=== PATIENT | male | born 1930 | race Caucasian/White ===

== ENCOUNTER 2017-03-10 07:48 | Outpatient (CLI) | payer MEDICARE ==
[~2017-03-10] VITALS: Ht 177.8 cm; Wt 72.7 kg
--- NOTE | ~2017-03-10 | HEMODYNAMI ---
PATIENT:DIGNA RAVI MEDICAL RECORD: [id number] : 30 LOCATION:[facility] ADMISSION DATE: 03/10/17 Generatedon:03/10/201711:04 Patient name: DIGNA RAVI Patient #: [id number] SSN: : 1930 Date of study: 03/10/2017 Page: Of Hemodynamic Procedure Report Patient Data Patient Demographics Procedure consent was obtained First Name: DIGNA Gender: Male Last Name: BREONNA : 1930 Middle Initial: D Age: 86 year(s) Patient #: [id number] Race: Unknown Additional ID: [id number] Contact details [address]: [address] [place] [address] State: [place] City: [place] Zip code: [address] Past Medical History Allergies: No known allergies Admission Admission Data Admission Date: 03/10/2017 Admission Time: 7:48 Admit Source: Other Height (in.): 60 BSA: 1.68 (m2) Height (cm.): 152.4 BMI: 30.66 (kg/m2) Weight (lbs.): 157 Weight (kg.): 71.21 Lab Results Lab Result Date: 03/10/2017 Lab Result Time: 0:00 Biochemistry Name Units Result Min Max BUN mg/dl 32 --(----)-* 7 18 Creatinine mg/dl 1.8 --(----)-* 0.6 1.3 CBC Name Units Result Min Max Hemoglobin g/dl 10.6 *-(----)-- 13.5 17.5 Procedure Procedure Types Cath Procedure Diagnostic Procedure C [facility] w/Coronaries PCI Procedure Coronary Stent Coronary Stent Initial Miscellaneous Procedures Moderate Sedation up to 15 minutes Procedure Description Procedure Date Procedure Date: 03/10/2017 Procedure Start Time: 10:49 Procedure End Time: 11:03 Procedure Staff Name Function Parmjit Burr MD Performing Physician Roro Taylor RT Monitor Karrie Parker RT Scrub Hunter Francois RN Nurse Preethi Sanders RN Nurse Procedure Data Cath Procedure Fluoroscopy Diagnostic fluoroscopy Total fluoroscopy Time: 1.9 time: 1.9 min min Diagnostic fluoroscopy Total fluoroscopy dose: 450 dose: 450 mGy mGy Contrast Material Contrast Material Type Amount (ml) Isovue 300 71 Entry Location Entry Primary Successful Side Size Upsize Upsize Entry Closure Lorenz ccessful Closure Location (Fr) 1 (Fr) 2 (Fr) Remarks Device Remarks Radial Right 6 Fr Mechanical TR band artery Short Compression Estimated blood loss: 10 ml Diagnostic catheters Device Type Used For End Catheter Placement DIAGNOSTIC Napavine 110cm 5 Procedure Fr catheter ([id number]) Procedure Complications No complications Procedure Medications Medication Administration Route Dosage 0.9% NaCl I.V. 100 ml/hr Oxygen NC 2 l/min Lidocaine 2% added to field 20 Heparin Flush Bag added to field 2 bags (1000units/500ml NS) Radial Cocktail added to field 1 syringe (Verapomil 2mg/Nitro 400mcg/Heparin 1500units) Fentanyl I.V. 50 mcg Versed I.V. 1 mg Versed I.V. 0.5 mg Fentanyl I.V. 25 mcg Heparin Bolus I.V. 4000 units Hemodynamics Rest BSA: 1.68 (m2) O2 Consumption: Estimated: 228.48 (ml/min) O2 Consumption indexed : Estimated:136 (ml/min/m) Pre Cath Intra NCS Post Cath Vital Signs Time Heart Resp SPO2 NIBP (mmHg) Rhythm Pain Sedation Rate (ipm) (%) Status Level (bpm) 10:37:16 56 15 100 150/76(123) NSR 0 (11) 10(A) , No pain 10:41:34 57 16 100 150/74(120) NSR 0 (11) 9(A) , No pain 10:45:59 54 14 98 121/56(102) NSR 0 (11) 9(A) , No pain 10:50:10 55 14 99 114/59(96) NSR 0 (11) 9(A) , No pain 10:54:22 55 16 100 84/48(68) NSR 0 (11) 10(A) , No pain 10:58:24 61 16 97 96/53(77) NSR 0 (11) 10(A) , No pain 11:02:28 56 8 100 107/49(86) NSR 0 (11) 10(A) , No pain Medications Time Medication Route Dose Verified Delivered Reason Not es Effectiveness by by 10:36:37 0.9% NaCl I.V. 100ml/hr Parmjit Oro used for Leno Sanders RN procedure 10:36:50 Oxygen NC 2 l/min Parmjit Oro used for Leno Sanders RN procedure 10:37:02 Lidocaine 2% added 20ml Parmjit Parnell for local to vial Leno Burr MD anesthetic field 10:37:11 Heparin Flush added 2 bags Parmjit Parnell used for Bag to Leno Burr MD procedure (1000units/500ml field NS) 10:39:24 Radial Cocktail added 1 Parmjit Parnell for (Verapomil to syringe Leno Burr MD vasodilation 2mg/Nitro field 400mcg/Heparin 1500units) 10:39:40 Fentanyl I.V. 50 mcg Parmjit Oro for sedation Leno Sanders RN 10:39:49 Versed I.V. 1 mg Parmjit Oro for hypokalemia Leno Sanders RN 10:47:26 Versed I.V. 0.5 mg Parmjit Oro for hypokalemia Leno Sanders RN 10:47:36 Fentanyl I.V. 25 mcg Parmjit Oro for sedation Leno Sanders RN 10:55:10 Heparin Bolus I.V. 4000 Parmjit Oro for units Leno Sanders RN anticoagulation Procedure Log Time Note 10:22:10 Patient Height : 60 inches 10:22:16 Patient Weight : 157 lbs 10:22:16 Admit Source: Other 10:22:59 Diagnostic Cath status Elective 10:23:01 Hunter Francois RN sent for patient. Start room use. 10:23:02 Time tracking: Regular hours 10:23:08 Plan of Care:Hemodynamics will remain stable., Cardiac rhythm will remain stable., Comfort level will be maintained., Respiratory function will remain adequate., Patient/ family verbilizes understanding of procedure., Procedure tolerated without complication., Recovers from procedure without complications.. 10:23:14 Patient received from Pre/Post Procedure Room to CCL 2 Alert and oriented. Tansferred to table in Supine position. 10:26:14 Warm blankets applied, and mary beth hugger turned on for patient comfort. 10:26:14 Correct patient and procedure confirmed by team. 10:26:16 Signed procedure consent form obtained from patient. 10:26:29 H&P Date Dictated: 03/06/2017 Within 30 days and on chart., H&P Addendum completed by physician on day of procedure. (MUST COMPLETE FOR ALL OUTPATIENTS). 10:26:31 Family in waiting room. 10:26:34 Patient NPO since Midnight. 10::42 Patient allergic to No known allergies 10::46 Is the patient allergic to Iodine/contrast media? No. 10::48 Is patient on blood thinner?Yes 10::52 ACC The patient was administered the following blood thiners within the last 24 hours: ACCPlavix 10::55 Patient diabetic? Yes. 10::56 If diabetic: On Metformin? No 10:27:09 Snore? No 10:27:11 Sleep apnea? No 10:27:15 Airway obstruction? No ? 10:27:21 Dentures? Yes in tight 10:27:43 Patient pain scale 0/10 ?. 10:27:55 IV patent on arrival in left forearm with 0.9% NaCl at [facility]. 10:36:04 Vital chart was started 10:36:37 0.9% NaCl 100ml/hr I.V. was administered by Preethi Sanders RN; used for procedure; 10:36:50 Oxygen 2 l/min NC was administered by Preethi Sanders RN; used for procedure; 10:37:02 Lidocaine 2% 20ml vial added to field was administered by Parmjit Burr MD; for local anesthetic; 10:37:11 Heparin Flush Bag (1000units/500ml NS) 2 bags added to field was administered by Parmjit Burr MD; used for procedure; 10:38:36 Lab results completed and on chart. 10:38:39 Right Radial & Right Groin area was prepped with chlora-prep and draped in sterile fashion 10:38:40 Alarms reviewed by R. N. 10:38:40 Sharps counted by scrub and verified by R.N. 10:38:42 Physician paged 10:38:43 Physician arrived 10:38:47 --------ALL STOP TIME OUT------ 10:38:48 Final Timeout: patient, procedure, and site verified with staff and physician. All members of the team are in agreement. 10:38:50 Right Radial & Right Groin site verified by team. 10:38:55 Sedation plan: IV Moderate Sedation Medication:Versed, Fentanyl 10:39:24 Radial Cocktail (Verapomil 2mg/Nitro 400mcg/Heparin 1500units) 1 syringe added to field was administered by Parmjit Burr MD; for vasodilation; 10:39:33 ACIST Syringe (71002) opened to sterile field. 10:39:33 Bag Decanter (2002S) opened to sterile field. 10:39:33 Medline Cath Pack ([id number]) opened to sterile field. 10:39:34 Terumo 5Fr [place] Sheath opened to sterile field. 10:39:34 St Bubba 260cm J .035 wire opened to sterile field. 10:39:35 ACIST Hand Control (64650) opened to sterile field. 10:39:36 ACIST Manifold (40301) opened to sterile field. 10:39:36 DIAGNOSTIC Multipack 5Fr catheter set (YY7424) opened to sterile field. 10:39:39 Tegaderm 4 x 4 (1626W) opened to sterile field. 10:39:40 Fentanyl 50 mcg I.V. was administered by Preethi Sanders RN; for sedation; 10:39:49 Versed 1 mg I.V. was administered by Preethi Sanders RN; for hypokalemia; 10:43:55 Lab Result : BUN 32 mg/dl 10:43:55 Lab Result : Hemoglobin 10.6 g/dl 10:43:55 Lab Result : Creatinine 1.8 mg/dl 10:47:26 Versed 0.5 mg I.V. was administered by Preethi Sanders RN; for hypokalemia; 10:47:36 Fentanyl 25 mcg I.V. was administered by Preethi Sanders RN; for sedation; 10:49:44 Procedure started. 10:49:44 Full Disclosure recording started 10:49:48 Local anesthetic to right radial artery with Lidocaine 2% by Parmjit Burr MD.INITIAL ACCESS ONLY 10:50:15 A 6 Fr Short sheath was inserted into the Right Radial artery 10:52:05 Use device set Radial Dx 10:52:14 ACIST Syringe (14320) opened to sterile field. 10:52:14 Medline Cath Pack ([id number]) opened to sterile field. 10:52:16 Bag Decanter (2001S) opened to sterile field. 10:52:16 Terumo 6Fr Slender Glidesheath opened to sterile field. 10:52:17 St Bubba 260cm J .035 wire opened to sterile field. 10:52:18 ACIST Hand Control (74590) opened to sterile field. 10:52:19 ACIST Manifold (29969) opened to sterile field. 10:52:21 Tegaderm 4 x 4 (1626W) opened to sterile field. 10:52:23 MBrace Wrist Support ([id number]) opened to sterile field. 10:52:47 A DIAGNOSTIC Napavine 110cm 5 Fr catheter (210991) was advanced over the wire and used for Procedure. 10:53:02 LV angiography performed. 10:53:08 EF : 60 % 10:53:13 LCA angiography performed. 10:53:18 RCA angiography performed. 10:53:23 Catheter removed. 10:53:24 Proceeding to intervention. 10:54:34 GUIDE 6FR XBLAD 3.5 catheter ([id number]) opened to sterile field. 10:54:36 INFLATOR Merit BasixCompak Inflation Kit (SM3087) opened to sterile field. 10:54:36 Perry Whisper 190cm wire opened to sterile field. 10:55:10 Heparin Bolus 4000 units I.V. was administered by Preethi Sanders RN; for anticoagulation; 10:55:11 6 Fr XBLAD 3.5 guide catheter was inserted over the wire 10:55:22 Whisper wire advanced. 10:56:10 Wire removed. 10:56:18 Perry Whisper J 300cm 0.014 guide wire opened to sterile field. 10:56:54 whisper 300 wire advanced. 10:56:56 Wire advanced across lesion. 10:57:26 Inflation Number: 1 A HAVEN OTW 3.5 x 18 stent ([id number]) was prepped and advanced across the Mid LAD. The stent was deployed at 15 PB for 0:10 (min:sec). 10:58:31 TR BAND Standard ([id number]) opened to sterile field. 10:58:45 Guide catheter removed. 10:59:04 Sheath removed intact; hemostasis achieved with Mechanical Compression to the Right Radial artery. 10:59:06 Procedure ended.(Physican Out) 10:59:18 Fluoroscopy time 01.90 minutes. 10:59:23 Fluoroscopy dose: 450 mGy 10:59:23 Flurop Dose total: 450 10:59:30 Contrast amount:Isovue 300 71ml. 10:59:32 Sharps counted by scrub and verified by R.N. 10:59:35 TR band inflated with 10cc of air. 10:59:37 Insertion/operative site no bleeding no hematoma. 10:59:38 Post Procedure Pulses reassessed and unchanged 10:59:41 Post-procedure physical assessment completed. ASA score P 2 - A patient with mild systemic disease as per Parmjit Burr MD. 10:59:46 Post procedure rhythm: unchanged. 10:59:49 Estimated blood loss: 10 ml 10:59:51 Post procedure instruction explained to patient.Patient verbalizes understanding. 11:00:05 Procedure type changed to Cath procedure, Diagnostic procedure, LHC, LHC w/Coronaries, PCI procedure, Coronary Stent, Coronary Stent Initial, Miscellaneous Procedures, Moderate Sedation up to 15 minutes 11:00:06 Procedure and supply charges have been captured, reviewed, submitted and are correct. 11:02:48 Procedure Complication : No complications 11:02:51 Vital chart was stopped 11:02:52 See physician's report for complete and final results. 11:02:54 Report given to Pre/Post Procedure Room. 11:02:57 Patient transfered to Pre/Post Procedure Room with Stretcher. 11:03:00 Procedure ended. 11:03:00 Full Disclosure recording stopped 11:03:03 End room use (Document Last) Intervention Summary Intervention Notes Time ActionType Lesion and Equipment Action# Pressure Duration Attributes Used 10:57:26 Place stent Mid LAD HAVEN OTW 3.5 1 15 00:10 x 18 stent ([id number]) Device Usage Item Name Manufacture Quantity Catalog Hospital Part Current Mini mal Lot# / Number Charge Number Stock Stock Serial# Code ACIST Syringe Acist 2 97924 885301 141424 085597 20 (98946) Medical Systems Inc Bag Decanter Microtek 2 709196 42731 519385 5 () Medical Inc. Medline Cath Cardinal 2 [id number] 361044 32999 422627 5 Agari ([id number]) Terumo 5Fr Terumo 1 [id number] 755982 563476 081426 [address] Bubba 2 811824 756428 038788 619300 30 J .035 wire ACIST Hand Acist 2 04276 198642 886139 956147 5 Control Medical (75307) Systems Inc ACIST Acist 2 47531 685788 213544 417810 5 Manifold Medical (41217) Systems Inc DIAGNOSTIC Cardinal 1 [id number] 221582 11983 568909 30 Multipack 5Fr Health catheter set ([id number]) Tegaderm 4 x 3M 2 1626W 345983 638477 452234 5 4 (1626W) DIAGNOSTIC Terumo 1 40-5013 801837 651511 316476 5 Napavine 110cm 5 Fr catheter (571227) Terumo 6Fr Terumo 1 [id number] 724231 719010 101544 40 Slender Glidesheath MBrace Wrist Advanced 1 140-0250-00 876485 96839 041696 5 Support Vascular ([id number]) Dynamics GUIDE 6FR Cardinal 1 [id number] 361173 004268 585211 10 XBLAD 3.5 Health catheter (04202360) INFLATOR [facility] 1 DL0507 950789 848290 990761 15 [facility] BasixCompak Inflation Kit (VQ2353) Perry Perry 1 [id number] 053916 449954 790993 5 Whisper 190cm Vascular wire Perry Perry 1 [id number] 641394 149434 530285 5 Whisper J Vascular 300cm 0.014 guide wire HAVEN OTW 3.5 Medtronic 1 [id number] 405547 2661054 532836 5 [id number] x 18 stent ([id number]) TR BAND Terumo 1 [id number] 847229 595625 225822 40 Standard ([id number]) Signature Audit [place] Stage Time Signature Unsigned Intra-Procedure 03/10/2017 Roro Taylor 11:04:35 AM RT(R) Signatures Monitor : Roro Taylor Signature : RT Date : Time : [place] [address] [place] [address]
[~2017-03-10 07:48] MED LIST: ALPHAGAN 0.2%5 ML EACH EYE; BAYER CHEWABLE81 MG PO; CENTRUM COMPLE1 EACH PO; COREG12.5 MG PO; HYDROCHLOROTH12.5 M1 PO; JANUVIA50 MG PO; LYRICA75 MG PO; PLAVIX75 MG PO; PRINIVIL20 MG PO; TRAVATAN Z2.5 ML EACH EYE; ZETIA10 MG PO
[2017-03-10] MEDS ORDERED: LIPITOR20 MG PO (08:50)
[2017-03-10] MEDS ORDERED: AMBIEN10 MG PO (08:52)
[2017-03-10 09:01] VITALS: BP 124/56; Ht 177.8 cm; Wt 72.7 kg
[2017-03-10 09:09] LABS: HEMATOCRIT 30.9 % (42.0-54.0); HEMOGLOBIN 10.6 g/dL (13.5-17.5); LYMPHOCYTES 23.7 % (15-50); MCH 29.4 pg (26.0-34.0); MCHC 34.3 g/dL (31.0-37.0); MCV 85.6 fL (80.0-100.0); MEAN PLATELET VOLUME 10.8 fL (7.4-10.4); NEUTROPHILS 62.2 % (40-80); PLATELET COUNT 151 10x3/uL (130-400); RBC 3.61 10x6/uL (4.20-6.10); RDW 13.3 % (11.5-14.5); WBC 6.9 10x3/uL (4.8-10.8)
[2017-03-10 09:20] LABS: ANION GAP 12.4 mmol/L (8-16); CARBON DIOXIDE 25.6 mmol/L (21.0-32.0); CREATININE - SERUM 1.8 mg/dL (0.6-1.3)
--- NOTE | 2017-03-21 12:14 | OP ---
PATIENT NAME: DIGNA RAVI MEDICAL RECORD: [id number] :30 LOCATION:[facility] ADMISSION DATE: SURGEON: BRANDIE URIOSTEGUI MD DATE OF OPERATION: 03/10/2017 PROCEDURES: 1. PTCA and stent of LAD. 2. Left heart catheterization. 3. Selective coronary angiography. 4. Left ventriculogram. INDICATION: Angina and coronary artery disease. PROCEDURE IN DETAIL: After informed consent was obtained and after a detailed explanation of the risks, benefits as well as alternative therapies, the patient elected to proceed with angiogram and angioplasty. The right femoral area was prepped and draped in normal sterile fashion. The right femoral artery was cannulated via modified Seldinger technique with placement of 6-Lao sheath. All catheters exchanged through this sheath. FINDINGS: Left ventriculogram was performed in standard 30-degree CORTES view, reveals good cardiac wall motion throughout all segments. Overall ejection fraction estimated at 55%-60%. SELECTIVE CORONARY ANGIOGRAPHY: 1. Left main showed no significant angiographic disease. 2. Left anterior descending has previously placed stent. Proximally, there is 75-80% in-stent restenosis. 3. Left circumflex has moderate irregularities, but no discrete flow-limiting stenosis. 4. Right coronary has 70%-80% stenosis proximally, otherwise only [id number] irregularities. PTCA AND STENT OF THE LAD: The stent used is a 3.5 x 18 mm [place]. Result was 0% residual stenosis. OVERALL IMPRESSION: Successful PTCA and stent of the LAD going from 75-80% initial stenosis to 0% residual stenosis. Plan for PTCA and stent of the RCA in the near future. TRANSINT:[id number] Voice Confirmation ID: [id number] DOCUMENT ID: [id number] BRANDIE URIOSTEGUI MD at 1214 CC: [id number] DICTATION DATE: 03/10/17 1105 RECOOPERER: 03/10/17 1219 [facility] CLI 03/10/[address] [address]
== END 2017-03-10 16:20 | disposition home or self-care (01) ==
LOC: D.CATH 07:48
PROVIDERS: Internal Medicine Interventional Cardiology
DX: I25.119 Atherosclerotic heart disease of native coronary artery with unspecified angina pectoris (principal); T82.855A Stenosis of coronary artery stent, initial encounter; Z01.812 Encounter for preprocedural laboratory examination
CPT/HCPCS: 93458; C9600

== ENCOUNTER 2017-03-13 09:27 | Outpatient (CLI) | payer MEDICARE ==
[~2017-03-13] VITALS: Ht 177.8 cm; Wt 72.7 kg
--- NOTE | ~2017-03-13 | HEMODYNAMI ---
PATIENT:DIGNA RAVI MEDICAL RECORD: [id number] : 30 LOCATION:[facility] ADMISSION DATE: 03/13/17 Generatedon:03/13/201713:02 Patient name: DIGNA RAVI Patient #: [id number] SSN: : 1930 Date of study: 03/13/2017 Page: Of Hemodynamic Procedure Report Patient Data Patient Demographics Procedure consent was obtained First Name: DIGNA Gender: Male Last Name: BREONNA : 1930 Middle Initial: D Age: 86 year(s) Patient #: [id number] Race: Unknown Additional ID: [id number] Contact details Address: [address] [place] [address] State: [place] City: [place] Zip code: [address] Past Medical History Allergies: No known allergies Admission Admission Data Admission Date: 03/13/2017 Admission Time: 9:27 Weight (lbs.): 157 Weight (kg.): 71.21 Lab Results Lab Result Date: 03/10/2017 Lab Result Time: 0:00 Biochemistry Name Units Result Min Max BUN mg/dl 32 --(----)-* 7 18 Creatinine mg/dl 1.8 --(----)-* 0.6 1.3 CBC Name Units Result Min Max Hemoglobin g/dl 10.6 *-(----)-- 13.5 17.5 Procedure Procedure Types Cath Procedure PCI Procedure Coronary Stent Coronary Stent Initial Miscellaneous Procedures Moderate Sedation up to 15 minutes Procedure Description Procedure Date Procedure Date: 03/13/2017 Procedure Start Time: 12:46 Procedure End Time: 13:01 Procedure Staff Name Function Parmjit Burr MD Performing Physician Kevin Lowe RT Monitor Paulette Chan RT Scrub Chapito Lind RN Nurse Yinka Ramires RN Clinical Dietetic Technician Procedure Data Cath Procedure Fluoroscopy Diagnostic fluoroscopy Total fluoroscopy Time: 3.7 time: 3.7 min min Diagnostic fluoroscopy Total fluoroscopy dose: 238 dose: 238 mGy mGy Contrast Material Contrast Material Type Amount (ml) Isovue 300 47 Entry Location Entry Primary Successful Side Size Upsize Upsize Entry Closure Succes sful Closure Location (Fr) 1 (Fr) 2 (Fr) Remarks Device Remarks Femoral Right 6 Fr Exoseal artery Short Estimated blood loss: 10 ml Procedure Complications No complications Procedure Medications Medication Administration Route Dosage 0.9% NaCl I.V. 100 ml/hr Oxygen NC 2 l/min Heparin Flush Bag added to field 2 bags (1000units/500ml NS) Lidocaine 2% added to field 20 Versed I.V. 1 mg Fentanyl I.V. 50 mcg Versed I.V. 0.5 mg Fentanyl I.V. 25 mcg Heparin Bolus I.V. 4000 units Hemodynamics Rest Pre Cath Intra NCS Post Cath Vital Signs Time Heart Resp SPO2 etCO2 NIBP (mmHg) Rhythm Pain Sedation Rate (ipm) (%) (mmHg) Status Level (bpm) 12:38:12 56 16 100 31.3 149/71(123) NSR 0 (11) 10(A) , No pain 12:43:23 56 15 95 15.6 120/62(101) NSR 0 (11) 10(A) , No pain 12:48:00 60 16 100 30.6 124/65(108) NSR 0 (11) 10(A) , No pain 12:52:39 58 16 100 22.4 118/61(96) NSR 0 (11) 10(A) , No pain 12:57:15 61 27 99 34.3 120/62(103) NSR 0 (11) 10(A) , No pain Medications Time Medication Route Dose Verified Delivered Reason Notes Effectiveness by by 12:35:56 0.9% NaCl I.V. 100 Chapito Chapito Per physician ml/hr Diogo Lind RN RN 12:36:08 Oxygen NC 2 Chapito Chapito Per physician l/min Diogo Lind RN RN 12:37:11 Heparin Flush added 2 Chapito Chapito used for Bag to bags Diogo Lind procedure (1000units/500ml field CHELA [place] NS) 12:37:39 Lidocaine 2% added 20ml Chapito Chapito for local to vial Lorigan Lorigan anesthetic field CHELA [place] 12:39:22 Versed I.V. 1 mg Chapito Chapito for sedation Diogo Lind RN, RN 12:39:33 Fentanyl I.V. 50 Chapito Chapito for sedation mcg Diogo Lind RN RN 12:48:39 Versed I.V. 0.5 Chapito Chapito for sedation mg Diogo Lind RN RN 12:48:47 Fentanyl I.V. 25 Chapito Chapito for sedation mcg Diogo Lind RN RN 12:50:24 Heparin Bolus I.V. 4000 Chapito Chapito for units Diogo Lind anticoagulation RN asbestos abatement technician Log Time Note 12:18:30 Yinka Ramires RN sent for patient. Start room use. 12:18:31 Time tracking: Regular hours 12:18:36 Plan of Care:Hemodynamics will remain stable., Cardiac rhythm will remain stable., Comfort level will be maintained., Respiratory function will remain adequate., Patient/ family verbilizes understanding of procedure., Procedure tolerated without complication., Recovers from procedure without complications.. 12:19:13 Patient Weight : 157 lbs 12:19:28 H&P Date Dictated: 03/06/2017 Within 30 days and on chart., H&P Addendum completed by physician on day of procedure. (MUST COMPLETE FOR ALL OUTPATIENTS). 12:25:38 Patient received from Pre/Post Procedure Room to CCL 1 Alert and oriented. Tansferred to table in Supine position. 12:25:39 Warm blankets applied, and mary beth hugger turned on for patient comfort. 12:25:40 Correct patient and procedure confirmed by team. 12:25:45 Signed procedure consent form obtained from patient. 12:25:46 ECG and BP/O2 sat monitors applied to patient. 12:25:48 Pre-procedure instructions explained to patient. 12:25:49 Pre-op teaching completed and patient verbalized understanding. 12:25:51 Family in waiting room. 12:25:53 Patient NPO since Midnight. 12:27:03 Patient allergic to No known allergies 12:35:56 0.9% NaCl 100 ml/hr I.V. was administered by Chapito Lind RN; Per physician; 12:36:08 Oxygen 2 l/min NC was administered by Chapito Lind RN; Per physician; 12:36:47 Is the patient allergic to Iodine/contrast media? No. 12:36:49 Is patient on blood thinner?Yes 12:36:51 ACC The patient was administered the following blood thiners within the last 24 hours: ACCPlavix 12:36:54 Patient diabetic? No. 12:36:57 Previous problem with sedation/anesthesia? No ? 12:36:58 Snore? Yes 12:36:59 Sleep apnea? No 12:37:00 Deviated septum? No 12:37:02 Opens mouth fully? Yes 12:37:04 Sticks out tongue? Yes 12:37:06 Airway obstruction? No ? 12:37:11 Heparin Flush Bag (1000units/500ml NS) 2 bags added to field was administered by Chapito Lind RN; used for procedure; 12:37:13 Dentures? Yes IN TIGHT 12:37:17 Modified Juventino's test Ulnar < 7 seconds 12:37:19 Patient pain scale 0/10 ?. 12:37:22 Vital chart was started 12:37:26 IV patent on arrival in left forearm with 0.9% NaCl at [facility]. 12:37:39 Lidocaine 2% 20ml vial added to field was administered by Chapito Lind RN; for local anesthetic; 12:38:44 Right Radial & Right Groin area was prepped with chlora-prep and draped in sterile fashion 12:38:45 Alarms reviewed by R. N. 12:38:46 Sharps counted by scrub and verified by R.N. 12:38:47 --------ALL STOP TIME OUT------ 12:38:48 Final Timeout: patient, procedure, and site verified with staff and physician. All members of the team are in agreement. 12:38:50 Right Radial & Right Groin site verified by team. 12:38:54 Physical assessment completed. ASA score P 2 - A patient with mild systemic disease as per Parmjit Burr MD. 12:38:57 Sedation plan: IV Moderate Sedation Medication:Versed, Fentanyl 12:39:22 Versed 1 mg I.V. was administered by Chapito Lind RN; for sedation; 12:39:33 Fentanyl 50 mcg I.V. was administered by Chapito Lind RN; for sedation; 12:39:35 Lab results completed and on chart. 12:39:44 ACIST Syringe (06473) opened to sterile field. 12:39:45 ACIST Hand Control (59625) opened to sterile field. 12:39:46 ACIST Manifold (88557) opened to sterile field. 12:40:01 Use device set CATH PACK 12:40:18 Medline Cath Pack ([id number]) opened to sterile field. 12:40:22 Bag Decanter (2002) opened to sterile field. 12:40:23 DIAGNOSTIC WIRE .035 260cm J wire (578985) opened to sterile field. 12:40:27 Use device set TAUTH PCI 12:42:07 WHISPER 300cm guide wire ([id number]) opened to sterile field. 12:42:16 INFLATOR Merit BasixCompak Inflation Kit (MW7317) opened to sterile field. 12:42:48 GUIDE 6FR AR 2.0 catheter ([id number]) opened to sterile field. 12:43:03 Zero performed for pressure channel P1 12:43:15 Zero performed for pressure channel P1 12:44:03 SHEATH 6FR Slender ([id number]) opened to sterile field. 12:45:48 Procedure started. 12:45:48 Full Disclosure recording started 12:46:24 Local anesthetic to right radial artery with Lidocaine 2% by Parmjit Burr MD.INITIAL ACCESS ONLY 12:46:58 SHEATH 6FR [place] (PFX073) opened to sterile field. 12:47:24 Local anesthetic to right femoral artery with Lidocaine 2% by Parmjit Burr MD.ADDITIONAL ACCESS 12:47:33 A 6 Fr Short sheath was inserted into the Right Femoral artery 12:48:23 6 Fr AR 2 guide catheter was inserted over the wire 12:48:39 Versed 0.5 mg I.V. was administered by Chapito Lind RN; for sedation; 12:48:47 Fentanyl 25 mcg I.V. was administered by Chapito Lind RN; for sedation; 12:48:59 RCA angiography performed. 12:50:24 Heparin Bolus 4000 units I.V. was administered by Chapito Lind RN; for anticoagulation; 12:50:31 WHISPER wire advanced. 12:50:32 Wire advanced across lesion. 12:51:35 The AHVEN OTW 3.5 x 15 stent ([id number]) was advanced then removed because of failure to cross lesion 12:53:26 Inflation number: 1 A EUPHORA 3.5 x 15 Balloon ([id number]) was prepped and advanced across the Prox RCA, then inflated to 15 PB for 0:10 (min:sec). 12:53:35 Balloon removed over the wire. 12:55:15 Inflation Number: 2 A HAVEN OTW 3.5 x 15 stent ([id number]) was prepped and advanced across the Prox RCA. The stent was deployed at 17 PB for 0:10 (min:sec). 12:55:34 Stent catheter was removed intact over wire. 12:55:48 Wire removed. 12:55:48 Guide catheter removed. 12:56:06 EXOSEAL 6Fr (EX600) opened to sterile field. 12:56:18 Sheath removed intact; hemostasis achieved with Exoseal to the Right Femoral artery. 12:56:21 Procedure ended.(Physican Out) 12:56:25 Fluoroscopy time 03.70 minutes. 12:56:30 Fluoroscopy dose: 238 mGy 12:56:30 Flurop Dose total: 238 12:56:33 Contrast amount:Isovue 300 47ml. 12:56:34 Sharps counted by scrub and verified by R.N. 12:58:34 Insertion/operative site no bleeding no hematoma. 12:58:37 Post-op/insertion site Right Femoral artery dressed using a 4 x 4 and Tegaderm. 12:58:41 Post Procedure Pulses reassessed and unchanged 12:58:44 Post procedure: right dorsailis pedis pulse 2+ Normal; easily identifiable; not easily obliterated. 12:58:51 Post-procedure physical assessment completed. ASA score P 2 - A patient with mild systemic disease as per Parmjit Burr MD. 12:58:56 Post procedure rhythm: sinus bradycardia 12:58:59 Estimated blood loss: 10 ml 12:59:00 Post procedure instruction explained to patient.Patient verbalizes understanding. 12:59:00 Patient needs reinforcement of post procedure teaching. 13:00:09 Procedure type changed to Cath procedure, PCI procedure, Coronary Stent, Coronary Stent Initial, Miscellaneous Procedures, Moderate Sedation up to 15 minutes 13:00:49 Procedure and supply charges have been captured, reviewed, submitted and are correct. 13:00:59 Procedure Complication : No complications 13:01:03 Vital chart was stopped 13:01:04 See physician's report for complete and final results. 13:01:06 Report given to Pre/Post Procedure Room. 13:01:10 Patient transfered to Pre/Post Procedure Room with Bed. 13:01:12 Procedure ended. 13:01:12 Full Disclosure recording stopped 13:01:15 End room use (Document Last) Intervention Summary Intervention Notes Time ActionType Lesion and Equipment Action# Pressure Duration Attributes Used 12:51:35 Discard HAVEN OTW 3.5 Stent x 15 stent ([id number]) 12:53:26 Inflate Prox RCA EUPHORA 3.5 x 1 15 00:10 balloon 15 Balloon ([id number]) 12:55:15 Place stent Prox RCA HAVEN OTW 3.5 2 17 00:10 x 15 stent ([id number]) Device Usage Item Name Manufacture Quantity Catalog Hospital Part Current Mini mal Lot# / Number Charge Number Stock Stock Serial# Code ACIST Syringe Acist 1 02205 727106 965244 395376 20 (24364) Medical Systems Inc ACIST Hand Acist 1 54511 998805 844468 499576 5 Control Medical (18544) Systems Inc ACIST Acist 1 92810 099906 497243 999423 5 Manifold Medical (73148) Systems Inc Medline Cath Cardinal 1 [id number] 153730 36951 472455 5 [facility] ([id number]) Bag Decanter Microtek 1 2001S 637992 09528 935749 5 (2001S) Medical Inc. DIAGNOSTIC St Bubba 1 564071 782474 288230 930377 30 WIRE .035 260cm J wire (222725) WHISPER 300cm Perry 1 [id number] 492270 181826 745741 5 guide wire Vascular (6961261ZM) INFLATOR Qazzow 1 HT9923 409737 589421 325416 15 Qazzow Medical BasixCompak Inflation Kit (WV0091) GUIDE 6FR AR Medtronic 1 [id number] 671239 95988 158947 1 2.0 catheter (FR1VV88) SHEATH 6FR Terumo 1 [id number] 007487 190226 109585 40 Slender ([id number]) SHEATH 6FR Terumo 1 GNI211 267564 288969 919362 40 [place] Side (NKC716) HAVEN OTW 3.5 Medtronic 1 [id number] 432206 9748913 371952 5 [id number] x 15 stent ([id number]) EUPHORA 3.5 x Medtronic 1 [id number] 519093 677671 132916 5 [id number] 15 Balloon ([id number]) EXOSEAL 6Fr Cardinal 1 EX600 336606 951337 725938 10 (EX600) Health Signature Audit [place] Stage Time Signature Unsigned Intra-Procedure 03/13/2017 Paulette Chan 1:02:27 PM RT(R) Signatures Monitor : Kevin Lowe RT Signature : Date : Time : [facility] [address] [place] [address]
[~2017-03-13 09:27] MED LIST changes: +AMBIEN10 MG PO; +LIPITOR20 MG PO
[2017-03-13 10:25] VITALS: BP 132/57; Ht 177.8 cm; Wt 72.7 kg
[2017-03-13 10:36] LABS: BASOPHILS 0.7 % (0-2); HEMATOCRIT 32.8 % (42.0-54.0); IMMATURE GRANULOCYTES 0.1 % (0-5); LYMPHOCYTES 21.4 % (15-50); MCH 29.1 pg (26.0-34.0); MCHC 33.5 g/dL (31.0-37.0); MCV 86.8 fL (80.0-100.0); MEAN PLATELET VOLUME 10.5 fL (7.4-10.4); MONOCYTES 10.4 % (2-11); NEUTROPHILS 57.4 % (40-80); PLATELET COUNT 172 10x3/uL (130-400); RBC 3.78 10x6/uL (4.20-6.10); RDW 13.3 % (11.5-14.5); WBC 6.9 10x3/uL (4.8-10.8)
[2017-03-13 10:44] LABS: ANION GAP 11.5 mmol/L (8-16); CALCIUM 8.6 mg/dL (8.5-10.1); CARBON DIOXIDE 23.4 mmol/L (21.0-32.0); CREATININE - SERUM 1.8 mg/dL (0.6-1.3); POTASSIUM - SERUM 3.9 mmol/L (3.5-5.1)
--- NOTE | 2017-03-13 13:30 | NUR ---
2L NC, NO RESP DISTRESS. RIGHT GROIN 6F EXOSEAL CDI, NO BLEEDING OR HEMATOMA NOTED. NO C/O PAIN OR NAUSEA. VSS. AT BEDSIDE, CALL LIGHT WITHIN REACH.
--- NOTE | 2017-03-13 14:01 | NUR ---
DRINK AND ICE CREAM GIVEN. NO C/O NAUSEA. RIGHT GROIN 6F EXOSEAL CDI, NO BLEEDING OR HEMATOMA NOTED. 2L NC, NO RESP DISTRESS. VSS. NO C/O PAIN. WILL CONTINUE TO MONITOR CLOSELY.
--- NOTE | 2017-03-13 16:57 | NUR ---
1530 R GROIN REMAINS C/D/I W NO HEMATOMA OR BLEEDING. FAMILY AT SIDE.
--- NOTE | 2017-03-13 17:04 | NUR ---
1630 PIV REMOVED FROM LEFT FOREARM WITH BANDAID APPLIED. UP TO BEDSIDE TO DRESS WITH FAMILY AT SIDE. VOIDED 300CC VIA URINAL. 1650 R GROIN REMAINS C/D/I W NO HEMATOMA OR BLEEDING. D/C INSTRUCTIONS DISCUSSED WITH PATIENT AND FAMILY AT BEDSIDE. WHEELED OUT VIA WHEELCHAIR BY CATH TEAM.
--- NOTE | 2017-03-21 12:17 | OP ---
PATIENT NAME: DIGNA RAVI MEDICAL RECORD: [id number] :30 LOCATION:D.CAT ADMISSION DATE: SURGEON: BRANDIE URIOSTEGUI MD DATE OF OPERATION: 03/13/2017 DATE OF SERVICE: 03/13/2017 PROCEDURES: 1. PTCA stent RCA. 2. Selective coronary angiography. INDICATION: Angina and coronary artery disease. PROCEDURE IN DETAIL: After informed consent was obtained and after detailed explanation of risks, benefits as well as alternative therapies, the patient elected to proceed with angiogram and angioplasty. The right femoral area was prepped and draped in normal sterile fashion. The right femoral artery was cannulated via modified Seldinger technique with placement of 6-[place] sheath. All catheters exchanged through this sheath. FINDINGS: The right coronary has 80% in-stent restenosis proximally. This was addressed with a 3.5 x 15 mm [place] stent taken to 17 atmospheres. Result was 0% residual stenosis. OVERALL IMPRESSION: Successful percutaneous transluminal coronary angioplasty stent of the right coronary artery going from in-stent restenosis 80% to 0% residual stenosis. TRANSINT:[id number] Voice Confirmation ID: [id number] DOCUMENT ID: [id number] BRANDIE URIOSTEGUI MD at 1217 CC: [id number] DICTATION DATE: 03/13/17 1259 PRUNE WASHER: 03/13/17 1316 [facility] CLI 03/13/17 [place] [id number] [place] [address]
== END 2017-03-13 17:08 | disposition home or self-care (01) ==
LOC: D.CATH 09:27
PROVIDERS: Internal Medicine Interventional Cardiology
DX: I25.119 Atherosclerotic heart disease of native coronary artery with unspecified angina pectoris (principal); I10 Essential (primary) hypertension; E78.5 Hyperlipidemia, unspecified; Z01.812 Encounter for preprocedural laboratory examination